=== PATIENT | female | born 1970 | race Caucasian/White ===

== ENCOUNTER 2022-04-24 08:42 | Day surgery (SDC) | payer BC ==
[~2022-04-24 08:42] MED LIST: Lactated Ringers 1,000 ML IV SCH; Propofol 200 MG/20 ML SDV ONE; fentaNYL 100 MCG/2 ML SDV ONE
[2022-04-24] MEDS ORDERED: Propofol 200 MG/20 ML SDV ONE (11:29)
== END 2022-04-24 12:46 | disposition home or self-care (01) ==
LOC: MW.SDS 08:42
PROVIDERS: ATTEND Surgery
DX: D12.6 Benign neoplasm of colon, unspecified (principal); F41.9 Anxiety disorder, unspecified; J45.909 Unspecified asthma, uncomplicated; I10 Essential (primary) hypertension; E66.9 Obesity, unspecified; Z91.018 Allergy to other foods; Z80.0 Family history of malignant neoplasm of digestive organs; Z79.899 Other long term (current) drug therapy; Z90.49 Acquired absence of other specified parts of digestive tract; Z98.890 Other specified postprocedural states; Z68.35 Body mass index [BMI] 35.0-35.9, adult
CPT/HCPCS: 45385; 81025; J2704; J3010; J7120

== ENCOUNTER 2023-06-16 10:12 | Day surgery (SDC) | payer BC ==
[2023-06-16] MEDS: Lactated Ringers 1,000 ML IV SCH (10:42)
[2023-06-16] MEDS ORDERED: propofoL 50 ML ONE (11:12)
== END 2023-06-16 12:45 | disposition home or self-care (01) ==
LOC: MW.SDS 10:12
PROVIDERS: ATTEND Surgery
DX: D12.6 Benign neoplasm of colon, unspecified (principal); F41.9 Anxiety disorder, unspecified; J45.909 Unspecified asthma, uncomplicated; I10 Essential (primary) hypertension; K63.5 Polyp of colon; Z79.899 Other long term (current) drug therapy
CPT/HCPCS: 45378; J2704; J7120; 00812